=== PATIENT | female | born 1955 | race Caucasian/White ===

== ENCOUNTER 2023-01-24 00:02 | Emergency (ER) | payer MEDICARE, MEDICAID, SELFPAY ==
--- NOTE | ~2023-01-24 | XR_ITS ---
EXAMINATION: XR ANKLE, LEFT CLINICAL INFORMATION: Pain COMPARISON: None available. TECHNIQUE: AP, lateral, and mortise views of the left ankle. FINDINGS: The bone mineralization is within normal limits. No fracture is seen. The joint spaces are maintained. There is soft tissue swelling along the tib-fib and ankle. Tib-fib soft tissue calcifications are also seen. XR/XR ankle LT min 3V IMPRESSION: No acute osseous abnormality. Soft tissue swelling about the tib-fib and ankle.
--- NOTE | ~2023-01-24 | XR_ITS ---
EXAMINATION: XR FOOT, LEFT CLINICAL INFORMATION: Bruising. Pain. COMPARISON: None available. TECHNIQUE: AP, lateral, and oblique views of the left foot. FINDINGS: The bone mineralization is normal. There is a cortical step-off along the anterior one third of the inferior calcaneus with a jagged lucency extending superiorly to the superior cortex. There is mild first metatarsophalangeal and interphalangeal degenerative change with mild loss of joint space and subchondral sclerosis as well as minimal osteophyte formation. There is soft tissue swelling about the foot. A heel spur is noted. XR/XR foot LT min 3V IMPRESSION: Cortical step-offs and lucency through the calcaneus consistent with a mildly displaced fracture. First metatarsophalangeal and interphalangeal degenerative change.
[2023-01-24 00:11] VITALS: BP 120/62; BP 148/88; PULSE 78; PULSE 95; RESP 18; TEMP 36.9; O2SAT 94; O2SAT 98; BMI 38.0
--- NOTE | 2023-01-24 00:45 | PC.NURSE ---
Pt states she was incontinent of stool during fall. Pt assisted to restroom via wheelchair, pericare provided and new pants provided. Taken to XR at this time.
--- OUTSIDE RECORDS SUMMARY | 2023-01-24 01:32 | XMS_ITS | Continuity of Care Document ---
Author Name Unknown Organization [facility] ter Address [address] [place] [address]- Care Team Providers Care Brick Dropper Name Role Phone Chadd Caba MD Primary Care Physician [phone] [place] [facility] [place] - 05/13/[address] [address]- [facility] Attending Physician: Chadd Caba MD Allergies, Adverse Reactions, Alerts Substance Reaction Severity Status Darvon unsure Active Contrast Dye hives Active Other Environmental Allergy dexon suture, swelling Active Medications albuterol CFC free 90 mcg/inh inhalation aerosol 2, puffs, Inhalation, Every 4 hours, PRN, # 18 Gm, Refills 0, Maintenance, 05/30/18 10:16:52 EST, Aerosol, Compound Start Date: 05/30/18 Status: Ordered atorvastatin 10 mg oral tablet 1 tablet = 10 mg, By Mouth, Daily in AM, # 30 tablet, 0 Refills, Maintenance Start Date: 05/30/18 Status: Ordered biotin 1000 mcg oral tablet 1 tablet = 1,000 mcg, By Mouth, Daily at supper, # 30 tablet, 0 Refills, Maintenance, 03/23/19 14:38:10 EDT, Tablet Start Date: 03/23/19 Status: Ordered chlorthalidone 25 mg oral tablet 25 mg, 1, tablet, By Mouth, Daily in AM, # 30 tablet, Refills 0, Maintenance, 05/30/18 10:04:31 EST Start Date: 05/30/18 Status: Ordered CoQ10 300 mg oral capsule 1 capsule = 300 mg, By Mouth, Daily at bedtime, # 100 capsule, 0 Refills, Maintenance, 05/30/18 10:02:34 EST, Capsule Start Date: 05/30/18 Status: Ordered Ecotrin 325 mg oral delayed release tablet 1 tablet = 325 mg, By Mouth, Daily, # 30 tablet, 0 Refills, Maintenance, 03/28/19 6:39:30 EST, EC Tablet Start Date: 03/28/19 Status: Ordered Fluoxetine = 20 mg, By Mouth, Daily in AM, 0 Refills, Maintenance, 05/30/18 9:56:00 EST Start Date: 05/30/18 Status: Ordered levothyroxine 0.1 mg oral tablet 1 tablet = 100 mcg, By Mouth, Daily in AM, # 30 tablet, 0 Refills, Maintenance, 05/30/18 9:55:22 EST, Tablet Start Date: 05/30/18 Status: Ordered losartan 100 mg oral tablet 1 tablet = 100 mg, By Mouth, Daily at supper, 0 Refills, Maintenance, 03/23/19 14:38:44 EDT Start Date: 03/23/19 Status: Ordered MS Contin 60 mg oral tablet, extended release 1 tablet = 60 mg, By Mouth, Every 12 hours, 0 Refills, Maintenance, 03/23/19 14:37:16 EDT, Partial fill upon patient request Start Date: 03/23/19 Status: Ordered Multivitamin 1 tablet, By Mouth, Daily, 0 Refills, Maintenance, 03/23/19 14:34:20 EDT Start Date: 03/23/19 Status: Ordered oxyCODONE 5 mg oral tablet See Instructions, PRN, 1 tablet By Mouth Every 4-6 hours PRN breakthrough pain, # 18 tablet, Refills 0, Tot. Refills 0, Maintenance, for pain, 03/28/19 6:39:35 EST, Instructions Replace Required Details, Do Not Route, Partial fill upon patient request Start Date: 03/28/19 Status: Ordered Patient's Own Meds Maintenance, calcium 600 mg 1 tablet once daily, 05/30/18 10:05:35 EST Start Date: 05/30/18 Status: Ordered Symbicort 80mcg/4.5mcg Inhaler 2, puffs, Inhalation, 2 times a day, # 10.2 Gm, Refills 0, Maintenance, 05/30/18 10:15:50 EST, Aerosol Start Date: 05/30/18 Status: Ordered Tylenol Extra Strength 500 mg oral tablet 2 tablet = 1,000 mg, By Mouth, 3 times a day, PRN as needed for pain, # 90 tablet, 0 Refills, Maintenance, 03/28/19 6:39:21 EST, Tablet Start Date: 03/28/19 Status: Ordered Vitamin D3 1000 intl units oral capsule 1 capsule = 1,000 International_Units, By Mouth, Daily, # 100 capsule, 0 Refills, Maintenance, 03/10/19 10:59:13 EDT, Capsule Start Date: 03/10/19 Status: Ordered Social History Social History Type Response Smoking Status Former smoker, quit more than 30 days ago; Other: quit 20+ years ago; entered on: 04/13/19 Sex
--- OUTSIDE RECORDS SUMMARY | 2023-01-24 01:33 | XMS_ITS | Continuity of Care Document ---
Author Name Unknown Organization [facility] Sandrita young Address [address] [place] [address] [address] [place] [address]- Care Team Providers Care Utility Pipe Layer Name Role Phone Rosales ROGERS, Chadd Sy Primary Care Physician En[facility] [place] Date(s): 10/12/19 - 11/11/19 [facility] [address] [place] [address] Drive [address] [place] [address]- [facility] Attending Physician: Admtr, [id number] Admitting Physician: Admtr, Judie Referring Physician: Admtr, [id number] Allergies, Adverse Reactions, Alerts Substance Reaction Severity [...]
--- OUTSIDE RECORDS SUMMARY | 2023-01-24 01:33 | XMS_ITS | Continuity of Care Document ---
Author Name Unknown Organization [facility] ter Address [address] [place] [address]- Care Team Providers Care Shot Blaster Name Role Phone Chadd Caba MD Primary Care Physician [phone] [id number] Date([facility] 09/[facility] - 09/04/[address] [address]- Attending Physician: Chadd Caba MD Allergies, Adverse Reactions, Alerts Substance Reaction Severity Status Darvon unsure Active Other Environmental Allergy dexon suture, swelling Active Contrast Dye hives Active Medications albuterol CFC free 90 mcg/inh [...]
--- OUTSIDE RECORDS SUMMARY | 2023-01-24 01:33 | XMS_ITS | Continuity of Care Document ---
Author Name Unknown Organization [facility] ter Address [address] [place] [address]- Care Team Providers Care Maintenance Assistant Name Role Phone Chadd Caba MD Primary Care Physician [place] [facility] [place](s): 08/15/19 - 08/16/[address] [address]- [facility] Attending Physician: Chadd Caba MD Allergies, Adverse [...]
--- OUTSIDE RECORDS SUMMARY | 2023-01-24 01:33 | XMS_ITS | Continuity of Care Document ---
Author Name Unknown Organization [facility] Address [address] [place] [address]- Care Team Providers Care Lease Analyst Name Role Phone Chadd Caba MD Primary Care Physician En[place] [facility] [place] Date(s): 11/23/19 - 11/24/[address] [address]- [facility] Attending Physician: Chadd Caba MD Allergies, Adverse [...]
--- OUTSIDE RECORDS SUMMARY | 2023-01-24 01:33 | XMS_ITS | Continuity of Care Document ---
Author Name Unknown Organization [facility] ter Address [address] [place] [address]- Care Team Providers Care Gun Repair Clerk Name Role Phone Chadd Caba MD Primary Care Physician [phone] [id number] Date[facility] 08/27/20 - 08/28/[address] [address]- Attending Physician: Chadd Caba MD Allergies, Adverse [...]
--- OUTSIDE RECORDS SUMMARY | 2023-01-24 01:33 | XMS_ITS | Continuity of Care Document ---
Author Name Unknown Organization [facility] ter Address [address] [place] [address]- Care Team Providers Care Freezer Worker Name Role Phone Rosales ROGERS, Chadd Sy Primary Care Physician En[place] [facility] [place] Date(s): 08/02/19 - 08/02/[address] [address]- [facility] Attending Physician: Brooklyn Lino MD Allergies, Adverse Reactions, Alerts Substance Reaction [...]
--- OUTSIDE RECORDS SUMMARY | 2023-01-24 01:33 | XMS_ITS | Continuity of Care Document ---
Author Name Unknown Organization [facility] ter Address [address] [place] [address]- Care Team Providers Care Midwife And Birth [facility] Owner Name Role Phone Chadd Caba MD Primary Care Physician [facility] [id number] Date(s): 05/31/20 - 06/01/[address] [address] Attending Physician: Chadd Caba MD Allergies, Adverse [...]
--- OUTSIDE RECORDS SUMMARY | 2023-01-24 01:33 | XMS_ITS | Continuity of Care Document ---
Author Name Unknown Organization [facility] ter Address [address] [place] [address]- Care Team Providers Care Vice President Network Name Role Phone Chadd Caba MD Primary Care Physician En[place] [facility] [place] Date(s): 05/17/19 - 08/16/[address] [address]- [facility] Attending Physician: Chadd Caba MD Allergies, Adverse [...]
--- OUTSIDE RECORDS SUMMARY | 2023-01-24 01:33 | XMS_ITS | Continuity of Care Document ---
Author Name Unknown Organization [facility] ter Address [address] [place] [address]- Care Team Providers Care Teletypesetter Monitor Name Role Phone Chadd Caba MD Primary Care Physician [phone] [place] [facility] [id number] Date(s): 02/26/20 - 02/27/[address] [address]- [facility] Attending Physician: Chadd Caba MD [...]
--- NOTE | 2023-01-24 02:20 | ED.FALL ---
HPI - Fall General Chief Complaint: Fall Stated Complaint: Fall/ Left foot pain Time Seen by Provider: 01/24/23 02:06 Source: patient Mode of arrival: ambulatory Limitations: no limitations History of Present Illness HPI Narrative: Patient came by EMS for evaluation after falling backwards down 3 steps. States she was walking up steps when person in front of her fell into her causing her fall comes here with right calf pain and left ankle swelling and pain patient does have chronic back pain no head injury no loss of consciousness no other injuries patient has previous surgeries and bilateral ankle Related Data Allergies Allergy/AdvReac Type Severity Reaction Status Date / Time No Known Allergies Allergy Verified 01/24/23 00:11 Review of Systems Review of Systems: Yes all other systems are reviewed and are negative [facility] Social History Social History Alcohol intake: never Smoked in Last 30 Days: No Use of substances other than those prescribed or required for medical reasons: No Advance Directives: No Advance Directives Information Provided: Yes Physical Exam Vital Signs: Vital Signs: Last Vital Signs Temp 98.8 F 01/24/23 04:00 Pulse 82 01/24/23 04:00 Resp 18 01/24/23 04:00 BP 137/71 01/24/23 04:00 Pulse Ox 95 01/24/23 04:00 O2 Del Method Room Air 01/24/23 04:00 BMI result Body Mass Index 38.0 Appearance: Alert. Oriented X3. No acute distress. Eyes: PERRLA, No Nystagmus ENT: Pharynx normal. Oral Mucosa moist atraumatic normocephalic Neck: Normal inspection. Neck supple. No midline tenderness CVS: Normal heart rate and rhythm. Pulses normal. Respiratory: No respiratory distress. Equal air entry bilateral, no wheezing/rales/rhonchi Abdomen: Soft and nontender. Bowel sounds are present, Skin: Skin warm and dry. Normal skin color. Normal skin turgor. Extremities: No lower extremity edema. Mild right calf tenderness no swelling no muscle gap. Left ankle ecchymosis with significant swelling with tenderness of the heel, no deformity neurovascular intact Neuro: Oriented X 3. No motor deficit. Medications Administered Discontinued Medications Generic Name Dose Route Start Last Admin Trade Name Freq PRN Reason Stop Dose Admin Cyclobenzaprine HCl 10 mg 01/24/23 02:28 01/24/23 02:37 Cyclobenzaprine Hcl 10 Mg Tablet PO 01/24/23 02:29 10 mg ONCE ONE Administration Hydromorphone HCl 2 mg 01/24/23 02:28 01/24/23 02:37 Hydromorphone Hcl 2 Mg Tablet PO 01/24/23 02:29 2 mg ONCE ONE Administration Medical Decision Making Medical Decision Making [facility] Narrative: Patient's x-ray of left ankle negative for fracture but left foot x-ray showed minimal displaced calcaneal fracture, will give ortho boot crutches and check but she can ambulate Patient unable to bear weight has chronic back problems plan to send the patient for rehab for supportive treatment, case discussed with orthopedics advised boot nonweightbearing and follow up as outpatient Differential Diagnosis Differential Diagnoses: The differential diagnosis associated with the presentation includes Ankle fracture/dislocation/sprain Lab Data [facility] Lab Attestation statement: I reviewed the patient's lab results. 01/24/23 04:25 01/24/23 04:25 Labs: Lab Results 01/24/23 01/24/23 Range/Units 04:25 04:25 WBC 15.1 H (4.8-10.8) X10*3/uL RBC 4.19 L (4.20-5.50) X10*6/uL Hgb 12.7 (12.0-16.0) g/dl Hct 37.5 (37.0-47.0) % MCV 89.5 (80.0-98.0) fL MCH 30.3 (27.0-33.0) pg MCHC 33.9 (31.0-35.0) g/dl RDW 14.4 (11.0-16.0) % Plt Count 265 (160-400) X10*3/uL MPV 10.0 (9.4-12.3) fL Immature Gran % (Auto) 0.7 H (0.0-0.4) % Neut % (Auto) 82.5 H (45-73) % Lymph % (Auto) 10.5 L (20-40) % [place] % (Auto) 5.5 (2-11) % Eos % (Auto) 0.4 (0-4) % Baso % (Auto) 0.4 (0-2) % Lymph # (Auto) 1.6 (1.2-4.9) X10*3/uL [place] # (Auto) 0.8 (0.1-1.2) X10*3/uL Eos # (Auto) 0.1 (0.0-0.4) X10*3/uL Baso # (Auto) 0.1 (0.0-0.2) X10*3/uL Abs Immat Gran (auto) 0.10 H (0.00-0.03) X10*3/uL Absolute Neuts (auto) 12.5 H (2.0-8.3) x10*3/uL Absolute Nucleated RBC 0.000 (0.0-0.012) X10*3/uL Nucleated RBC % (auto) 0.0 (0.0-0.2) /100WBC Sodium 140 (135-145) mmol/L Potassium 3.0 L (3.3-5.1) mmol/L Chloride 98 (96-108) mmol/L Carbon Dioxide 29 (22-29) mmol/L Anion Gap 16 (12-20) BUN 26 H (9-16) mg/dL Creatinine 0.94 (0.5-1.4) mg/dL Estim Creat Clear Calc 60.4 Estimated GFR 59 Random Glucose 127 H (60-115) mg/dL Calcium 9.6 (8.4-10.2) mg/dL Total Bilirubin 0.4 (0.0-1.0) mg/dL AST 25 (5-31) U/L ALT 22 (0-31) U/L Alkaline Phosphatase 83 (39-117) U/L Total Protein 7.2 (6.5-8.0) g/dL Albumin 4.2 (3.5-5.0) g/dL Radiology Impression Discussion of test interpretation with radiology: I have reviewed the radiologist's reading. Radiologist Impression: RDER #: [id number] XR/XR foot LT min 3V IMPRESSION: Cortical step-offs and? lucency through the calcaneus consistent with a mildly displaced fracture. ? First metatarsophalangeal and interphalangeal degenerative change. Discharge Plan Discharge Clinical Impression: Calcaneus fracture, left Patient Disposition: Still a Patient
[2023-01-24] MEDS: HYDROmorphone HCl 2 MG TABLET PO ×2 (02:37→09:28)
[2023-01-24] MEDS: Cyclobenzaprine HCl 10 MG TABLET PO (02:37)
--- NOTE | 2023-01-24 03:04 | PC.NURSE ---
Patient medicated for pain and assisted to the bathroom. Patient having difficulty weight bearing on the left ankle at this time.
[2023-01-24 04:00] VITALS: BP 137/71; PULSE 82; RESP 18; TEMP 37.1; O2SAT 95
[2023-01-24 04:30] LABS: Basophils Absolute Auto 0.1 X10*3/uL (0.0-0.2); Basophils Percent Auto 0.4 % (0-2); Eosinophils Absolute Auto 0.1 X10*3/uL (0.0-0.4); Eosinophils Percent Auto 0.4 % (0-4); Hematocrit 37.5 % (37.0-47.0); Hemoglobin 12.7 g/dl (12.0-16.0); Imm Gran Pct Auto 0.7 % (0.0-0.4); Lymphocytes Absolute Auto 1.6 X10*3/uL (1.2-4.9); Lymphocytes Percent Auto 10.5 % (20-40); MANUAL DIFF FLAG NO; Mean Corpuscular HGB Conc 33.9 g/dl (31.0-35.0); Mean Corpuscular Hemoglobin 30.3 pg (27.0-33.0); Mean Corpuscular Volume 89.5 fL (80.0-98.0); Monocytes Absolute Auto 0.8 X10*3/uL (0.1-1.2); Monocytes Percent Auto 5.5 % (2-11); Neutrophils Absolute Auto 12.5 x10*3/uL (2.0-8.3); Neutrophils Percent Auto 82.5 % (45-73); Platelet Count 265 X10*3/uL (160-400); Red Blood Count 4.19 X10*6/uL (4.20-5.50); Red Cell Distribution Width 14.4 % (11.0-16.0); White Blood Count 15.1 X10*3/uL (4.8-10.8)
[2023-01-24 04:47] LABS: Alanine Aminotransferase 22 U/L (0-31); Albumin Level 4.2 g/dL (3.5-5.0); Alkaline Phosphatase 83 U/L (39-117); Anion Gap 16 (12-20); Aspartate Amino Transferase 25 U/L (5-31); Bilirubin Total 0.4 mg/dL (0.0-1.0); Blood Urea Nitrogen 26 mg/dL (9-16); Calcium 9.6 mg/dL (8.4-10.2); Carbon Dioxide 29 mmol/L (22-29); Chloride 98 mmol/L (96-108); Creatinine Clr Calc Pharmacy 60.4; Estimated Glomerular Filt Rate 59; Glucose Random 127 mg/dL (60-115); Sodium 140 mmol/L (135-145); Total Protein 7.2 g/dL (6.5-8.0)
[2023-01-24 05:51] VITALS: BP 135/70; PULSE 82; RESP 18; TEMP 37.1; O2SAT 93
[2023-01-24] MEDS: Potassium Chloride ER 20 MEQ TAB.ER.PRT PO (05:59)
[2023-01-24] MEDS: Cyclobenzaprine HCl 5 MG TABLET PO (11:45)
--- NOTE | 2023-01-24 13:31 | MHC.CM.ED ---
Received consult for assessment of d/c needs: pt presented to ED after a fall w/injury to right foot: ? fx Pt states she resides alone and is independent w/care needs at baseline. She drives, and uses no DME however, she has a w/c, walker and adaptive equipment from a bilateral ankle injury several years ago. Her apartment is adapted for a w/c as well. Discussed need for PT eval and ortho consult on 01/25. Pt does not want to go to [facility] and would like to remain home if possible. She denied VNA needs, I did this with two ankle injuries before, I think I can manage fine with only one. Broad [facility] referrals made in the event she changes her mind or cannot safely adapt: will await PT eval and ortho consult. Pt will need BLS to home. HCP copy requested: PCP is Willie Bowen.
[2023-01-24 14:00] VITALS: BP 120/55; PULSE 79; RESP 16; TEMP 37.1; O2SAT 94
--- NOTE | 2023-01-24 18:03 | PC.NURSE ---
Addendum entered by Justine Baird RN 01/24/23 18:45: Order for PRN Oxycodone received and administered, effectiveness pending. Original Note: Patient c/o pain and muscle spasms, did get one time dose of Dilaudid for pain and one time dose Flexeril for muscle spasms, cannot ambulate as she is unable to bear weight on left leg, using wheelchair to go to the bathroom, patient is having difficulties transferring from bed to the chair and from chair on the toilet but is insisting on using the toilet, and refuses bedpan. Numerous requests sent to provider for pain medication.
[2023-01-24] MEDS: oxyCODONE HCl Immed Release 5 MG TABLET 10 MG PO (18:33)
--- NOTE | 2023-01-24 19:27 | MHC.EDTECH ---
Pt resting in bed respirations even and unlabored no distress noted plan of care ongoing
[2023-01-24 20:53] VITALS: BP 135/70; PULSE 83; RESP 17; TEMP 36.3; O2SAT 95
[2023-01-25] MEDS: oxyCODONE HCl Immed Release 5 MG TABLET 10 MG PO ×4 (04:56→19:21)
[2023-01-25 06:16] VITALS: BP 117/50; PULSE 81; RESP 16; TEMP 36.1; O2SAT 97
--- NOTE | 2023-01-25 09:33 | MHC.EDTECH ---
AM care set up , Pt on chair . bed change .
--- NOTE | 2023-01-25 14:41 | PHA.MEDREC ---
Pharmacy Consult ? Medication Reconciliation Pharmacy has reviewed the medication reconciliation completed by Sita. Patient no longer taking oxybutynin, therefore removed from list. Patient on vit D3, calcium, biotin, multivitamin and PRN albuterol which I added to list. Danielle Owen, PharmD
--- NOTE | 2023-01-25 14:48 | MHC.CM.ED ---
Patient remains in ER overflow. PT eval completed. Short term rehab was recommended. Patient has [facility] for insurance. Insurance auth will be needed in order for patient to transfer to [facility]. Referral made in [facility] to all facilities that are contracted with [facility]. Facility options discussed with patient. [facility] [place], [facility], [facility] are able to offer a bed. Still waiting for response from [facility]. Patient choices: 1) [facility] 2)[facility]. Continue to monitor for d/c needs.
--- NOTE | 2023-01-26 02:52 | PC.NURSE ---
PT A&OX3. RESTFUL AT PRESENT WITH NO COMPLAINTS. C/0 PAIN LEFT FOOT/ANKLE EARLIER IN SHIFT AND RECEIVED OXYCODONE 10 MG PO WITH GOOD EFFECT. LEFT FOOT/ANKLE IS EDEMATOUS AND ICE PACKS APPLIED. PT OOB WITH 1 ASSIST TO RECLINER FOR SHORT TIME. REFUSES TO WEAR LEFT FOOT BOOT. PM CARE GIVEN AND PUREWICK CHANGED. PT BTB. GOOD EFFECT FROM OXYCODONE NOTED.
[2023-01-26 03:22] VITALS: BP 119/53; PULSE 89; RESP 17; TEMP 36.6; O2SAT 93
[2023-01-26] MEDS: oxyCODONE HCl Immed Release 5 MG TABLET 10 MG PO (03:24)
[2023-01-26 08:09] VITALS: BP 128/64; PULSE 81
[2023-01-26] MEDS: hydroCHLOROthiazide 25 MG TABLET PO (08:10)
[2023-01-26] MEDS: FLUoxetine HCl 20 MG CAPSULE PO (08:10)
[2023-01-26] MEDS: Potassium Chloride ER 20 MEQ TAB.ER.PRT 60 MEQ PO (08:10)
[2023-01-26] MEDS: oxyCODONE HCl Immed Release 5 MG TABLET PO ×2 (08:11→14:04)
[2023-01-26] MEDS: Multivitamin TABLET 1 TAB PO (08:11)
[2023-01-26] MEDS: Cholecalciferol (Vitamin D3) 25 MCG TABLET PO (08:11)
[2023-01-26] MEDS: Acetaminophen 325 MG TABLET PO ×2 (08:12→14:03)
[2023-01-26] MEDS: Losartan Potassium 50 MG TABLET 100 MG PO (08:15)
[2023-01-26] MEDS: Levothyroxine Sodium 100 MCG TABLET PO (08:19)
--- NOTE | 2023-01-26 08:42 | PC.NURSE ---
PT alert and oriented x4 , c/o chronic pain in the back as well as the lower extremities, treated with scheduled meds. Pt states someone will be bringing home morphine today. While at the bedside, pt took her own home levothyroxine. This nurse attempted to collect the home med, patient refused.
--- NOTE | 2023-01-26 11:14 | MHC.CM.ED ---
Patient remains in ER overflow. [facility] is able to offer a bed and is in the process of obtaining insurance auth. Continue to monitor for d/c needs.
[2023-01-26] MEDS: Fluticasone/Umeclidinium/Vilanterol 100/62.5/25 BLST.W.DEV 1 PUFF INHALE (11:46)
[2023-01-26 12:22] LABS: Anion Gap 12 (12-20); Blood Urea Nitrogen 14 mg/dL (9-16); Carbon Dioxide 33 mmol/L (22-29); Chloride 98 mmol/L (96-108); Creatinine Clr Calc Pharmacy 60.4; Estimated Glomerular Filt Rate 59; Glucose Random 104 mg/dL (60-115); Potassium 3.3 mmol/L (3.3-5.1); Sodium 140 mmol/L (135-145)
[2023-01-26 12:40] LABS: COVID-19 Test Negative (Negative); IDNOW Serial# BCCEAD1C
[2023-01-26] MEDS: Morphine Sulfate Immed Release 15 MG TABLET PO (13:18)
--- NOTE | 2023-01-26 13:35 | PC.NURSE ---
pt given 15mg MS immediate release per MR. confirmed with PA. pt reports that upcoming [facility] oxycodone 5mg is not sufficient and requests to speak to provider.
[2023-01-26] MEDS: Potassium Chloride Packet 20 MEQ PACKET 40 MEQ PO (13:58)
== END 2023-01-26 14:22 | disposition skilled nursing facility (03) ==
PROVIDERS: Physician Assistant; Emergency Provider Internal Medicine; PCP Internal Medicine
DX: S92.002A Unspecified fracture of left calcaneus, initial encounter for closed fracture (principal); R26.81 Unsteadiness on feet; E87.6 Hypokalemia; W10.9XXA Fall (on) (from) unspecified stairs and steps, initial encounter; Y93.9 Activity, unspecified; Y92.9 Unspecified place or not applicable; Y99.9 Unspecified external cause status; Z20.822 Contact with and (suspected) exposure to COVID-19; Z20.828 Contact with and (suspected) exposure to other viral communicable diseases; Z79.899 Other long term (current) drug therapy
CPT/HCPCS: 36415; 73610; 73630; 80048; 80053; 85025; 87635; 97162; 99285

== ENCOUNTER 2023-02-01 13:23 | Outpatient (AMB) | payer MEDICARE, MEDICAID, SELFPAY ==
--- NOTE | 2023-02-01 13:29 | A.OFFVIS_ITS ---
Intake Intake Visit Reasons: ED F/U L calc fx, DOI 01/24/23 Intake Note: Thuy a 68 year old female who presents today for an ER follow up of left calcaneus fx, DOI 01/24/23. Patient reports while she was going up stairs another person fell into her causing her to fall backwards. Currently constant throbbing pain and swelling, states can stand but not able to walk. Hx of back problems. Hx of bilateral ankle surgery. Finds very little relief with pain medication. Patient complains of right calf pain and bruising, as well as left shoulder pain, unsure if this is related to her fall. Allergies No Known Allergies Allergy (Verified 02/01/23 13:29) HPI ED F/U L calc fx, DOI 01/24/23 HPI Details 68-year-old female who presents to the [facility] today for an ED follow-up of left foot injury s/p fall while going up when another person fell onto her causing her to fall backwards, 01/24/23. She states she has throbbing pain and swelling in her foot which makes her unable to ambulate. She finds minimal relief with her pain medication. She also c/o right calf pain and bruising as well as left shoulder pain which she is unsure if it is due to her fall. She has a history of back problems and bilateral ankle surgery. 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 Review of Systems Const All systems reviewed & are unremarkable except as noted in HPI and below Physical Exam Const General: cooperative, healthy appearing, comfortable, no acute distress, well developed and alert Orientation/consciousness: patient oriented x3 HEENT Head: Yes normal to inspection, Yes normocephalic and Yes atraumatic Eyes General: appearance normal, both eyes and all related structures Resp Effort & Inspection: normal respiratory effort and able to speak in complete sentences Cardio Rate: regular rate Peripheral pulses: Peripheral pulses 2+ throughout GI Palpation (GI): Soft to palpation Skin Lesions: no lesions Rashes: no rashes Neuro General: patient oriented x3 Extrem Other: Left ankle: Normal to inspection. She does have diffused swelling and bruising throughout the calcaneus into the foot with tenderness to the posterior aspect into the calcaneus. She has no tenderness over the medial or lateral malleolus. No tenderness over the anterior tears. She does have some cellulitic skin type changes over the dorsum of the left foot. Calf supple, nontender. Pulses present. NVI. Right ankle: Normal to inspection. She does have some bruising at the base of the foot. No tenderness over the medial or lateral malleolus. No tenderness in the anterior portion of the talus No tenderness in the foot. She does have some tenderness over the belly of the calf which extends distally. There is no defect along the Achilles tendon. She can dorsi and plantar flex without discomfort. NVI. Results Reviewed Results Reviewed: X-rays of the right calcaneus obtained in the ED on January 24 show a minimally displaced fracture through the posterior body of the calcaneus. No extension into the articular surface. Assessment & Plan Assessment & Plan (1) Calcaneus fracture, left: Code(s): S92.002A - Unspecified fracture of left calcaneus, initial encounter for closed fracture Qualifiers: Encounter type: initial encounter Calcaneus location: body Fracture type: closed Fracture alignment: nondisplaced Qualified Code(s): S92.015A - Nondisplaced fracture of body of left calcaneus, initial encounter for closed fracture (2) Contusion of right calf: Code(s): S80.11XA - Contusion of right lower leg, initial encounter Qualifiers: Encounter type: initial encounter Qualified Code(s): S80.11XA - Contusi on of right lower leg, initial encounter Plan She will remain non weight bearing in the LLE. Due to the amount of swelling, she will continue to wear the boot but she does understand she needs to wear this at all times unless for resting and hygiene. I did prescribe her Bactrim DS to take twice a day for 10 days to help with this cellulitis. For her RLE, I did not feel there is any bony abnormality present, I feel this is all soft tissue. I encouraged ankle ROM exercises and ice. She can weight bearing as tolerated on the RLE and I would like to see her back in 1 weeks for a skin check sooner if needed. Patient Instructions: Scribed for Ramana Garrett PA-C, by Juan Manuel Salazar medical file clerk, on 02/01/2023 at 1:30 PM EST. I, Ramana Garrett PA-C, have personally reviewed and agree with the information entered by the scribe. Coding Level of Care Code New Pt Level 3 (06049) Diagnoses Closed nondisplaced fracture of body of left calcaneus, initial encounter S92.015A Encounter type: initial encounter Calcaneus location: body Fracture type: closed Fracture alignment: nondisplaced Contusion of right calf, initial encounter S80.11XA Encounter type: initial encounter
== END 2023-02-01 14:38 | disposition home or self-care (01) ==
PROVIDERS: Visit Provider Physician Assistant
DX: S92.015A Nondisplaced fracture of body of left calcaneus, initial encounter for closed fracture (principal); S80.11XA Contusion of right lower leg, initial encounter
CPT/HCPCS: 99203

== ENCOUNTER → 2023-02-01 13:23 | Outpatient (BNVA) | payer MEDICARE, MEDICAID, SELFPAY | PROVIDERS: Visit Provider Physician Assistant ==

== ENCOUNTER 2023-09-01 09:50 | Outpatient (AMB) | payer MEDICARE, MEDICAID, SELFPAY ==
[2023-09-01 09:55] VITALS: BP 136/80; PULSE 76; O2SAT 95; BMI 39.4
--- NOTE | 2023-09-01 09:55 | A.OFFVIS_ITS ---
Intake Vital Signs 09/01/23 09:55 Height 5 ft 2 in Weight 215 lb 5.759 oz BMI 39.4 BP 136/80 Blood Pressure Location Rt brachial Position Sitting Pulse 76 Pulse Source Doppler Pulse Oximetry (%) 95 Oxygen Delivery Method Room Air Intake Visit Reasons: COPD/Pre Op (NEOS) Allergies contrast dye Allergy (Severe, Uncoded 09/01/23 10:00) Unknown HPI COPD/Pre Op (NEOS) HPI Details 68-year-old lady, former 60+ pack-year s moker, quit 20 years prior with underlying moderate COPD and likely obstructive sleep apnea referred for pulmonary perioperative risk evaluation for the proposed ankle fusion under general anesthesia. Patient has been currently using Trelegy and albuterol MDI with good control of her underlying COPD symptoms. She denies recent exacerbations. She does have family history of emphysema and lung cancer in her parents. Patient states that before injuring her ankle she was able to walk several blocks without dyspnea. 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 Review of Systems Const Denies daytime sleepiness, Denies excessive sweating, Denies fatigue, Denies fever(s), Denies lethargy, Denies malaise, Denies night sweats, Denies snoring and Denies weight loss Eyes Denies blurry vision and Denies itchy eyes ENT Denies nasal congestion, Denies post nasal drip, Denies sinus pain, Denies sinus pressure and Denies other ( Thrush) Card Denies chest pain, Denies pedal edema, Denies dyspnea, Denies orthopnea and Denies paroxysmal nocturnal dyspnea Resp Denies cough, Denies hemoptysis, Denies excessive phlegm production, Denies dyspnea, Denies snoring and Denies wheezing GI Denies abdominal pain and Denies heartburn Musc Denies myalgias, Denies arthralgias and Denies joint swelling Skin/Breast Denies rash Neuro Denies memory loss and Denies seizure-like activity Psych Denies abnormal sleep pattern, Denies anxiety and Denies memory loss Endo Denies excessive sweating, Denies fatigue and Denies heat intolerance Fredrick/Lymph Denies easy bruising Aller/Immun Denies itchy eyes, Denies seasonal rhinorrhea and Denies wheezing Physical Exam Vital Signs: Last Vital Signs Pulse 76 09/01/23 09:55 BP 136/80 09/01/23 09:55 Pulse Ox 95 09/01/23 09:55 Oxygen Delivery Method Room Air 09/01/23 09:55 BMI result Body Mass Index 39.4 Const General: no acute distress and alert Nutritional Appearance: obese Orientation/consciousness: Other orientation findings ( oriented) HEENT Head: Yes atraumatic Eyes General: appearance normal, both eyes and all related structures Sclerae: sclerae normal EOM: EOMs intact bilaterally Neck Neck: Yes supple Lymphatic: no lymphadenopathy noted Resp Effort & Inspection: normal respiratory effort and no use of accessory muscles Auscultation: clear to auscultation bilaterally Cardio Rate: regular rate Rhythm: regular rhythm Heart sounds: no gallops, no murmurs and no rubs Skin General skin exam: other ( warm) Extrem General: No clubbing, No cyanosis and No edema Assessment & Plan Assessment & Plan (1) COPD (chronic obstructive pulmonary disease): Code(s): J44.9 - Chronic obstructive pulmonary disease, unspecified Plan: Results of recent pulmonary function test from [facility] reviewed. Underlying moderate COPD, now reasonably well controlled on current regimen of Trelegy and albuterol MDI. Continue current regimen. (2) ANGELLA (obstructive sleep apnea): Code(s): G47.33 - Obstructive sleep apnea (adult) (pediatric) Plan: Likely underlying obstructive sleep apnea. At this time patient wants to postpone further workup until recovering from her ankle surgery. (3) Encounter for preoperative pulmonary examination: Code(s): Z01.811 - Encounter for preprocedural respiratory examination Plan: At this time patient is at low risk for pulmonary perioperative complications for the proposed ankle fusion under general anesthesia. Secondary to likely underlying obstructive sleep apnea, consider extubation to BiPAP. Coding Level of Care Code New Pt Level 4 (79695) Diagnoses COPD (chronic obstructive pulmonary disease) J44.9 ANGELLA (obstructive sleep apnea) G47.33 Encounter for preoperative pulmonary examination Z01.811
== END 2023-09-01 10:18 | disposition home or self-care (01) ==
PROVIDERS: PCP Internal Medicine; Referring Provider Physician Assistant; Visit Provider Internal Medicine Pulmonary Disease
DX: J44.9 Chronic obstructive pulmonary disease, unspecified (principal); G47.33 Obstructive sleep apnea (adult) (pediatric); Z01.811 Encounter for preprocedural respiratory examination
CPT/HCPCS: 99204

== ENCOUNTER → 2023-09-01 09:50 | Outpatient (BNVA) | payer MEDICARE, MEDICAID, SELFPAY | PROVIDERS: PCP Internal Medicine; Referring Provider Physician Assistant; Visit Provider Internal Medicine Pulmonary Disease | DX: Z01.811 Encounter for preprocedural respiratory examination (principal); J44.9 Chronic obstructive pulmonary disease, unspecified; G47.33 Obstructive sleep apnea (adult) (pediatric) | CPT/HCPCS: 99202 ==

== ENCOUNTER 2024-02-08 13:08 | Outpatient (AMB) | payer MEDICARE, MEDICAID, SELFPAY ==
[2024-02-08 13:12] VITALS: BP 122/77; PULSE 80; O2SAT 94; BMI 38.2
--- NOTE | 2024-02-08 13:12 | MHC.OFFVIS ---
Vital Signs 02/08/24 13:12 Height 5 ft 2 in Weight 209 lb BMI 38.2 BP 122/77 Blood Pressure Location Rt brachial Position Sitting Pulse 80 Pulse Source Doppler Pulse Oximetry (%) 94 Oxygen Delivery Method Room Air Intake Visit Reasons: COPD Allergies contrast dye Allergy (Severe, Uncoded 09/01/23 10:00) Unknown HPI HPI COPD: Details: 69-year-old lady, former 60+ pack-year smoker, quit 20 years prior with underlying moderate COPD and likely obstructive sleep apnea referred for pulmonary perioperative risk evaluation for the proposed ankle fusion under general anesthesia. Patient has been currently using Trelegy and albuterol MDI with good control of her underlying COPD symptoms. She denies recent exacerbations. She does have family history of emphysema and lung cancer in her parents. Patient states that before injuring her ankle she was able to walk several blocks without dyspnea. After the last office visit patient continued on Trelegy with reasonable control of her underlying symptoms. She is interested in performance sleep study at this time. She denies recent exacerbations. 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 Review of Systems Const Reports daytime sleepiness, Denies excessive sweating, Denies fatigue, Denies fever(s), Denies lethargy, Denies malaise, Denies night sweats, Reports snoring and Denies weight loss Eyes Denies blurry vision and Denies itchy eyes ENT Denies nasal congestion, Denies post nasal drip, Denies sinus pain, Denies sinus pressure and Denies other ( Thrush) Card Denies chest pain, Denies pedal edema, Denies dyspnea, Denies orthopnea and Denies paroxysmal nocturnal dyspnea Resp Denies cough, Denies hemoptysis, Denies excessive phlegm production, Denies dyspnea, Reports snoring and Denies wheezing GI Denies abdominal pain and Denies heartburn Musc Denies myalgias, Denies arthralgias and Denies joint swelling Skin/Breast Denies rash Neuro Denies memory loss and Denies seizure-like activity Psych Denies abnormal sleep pattern, Denies anxiety and Denies memory loss Endo Denies excessive sweating, Denies fatigue and Denies heat intolerance Fredrick/Lymph Denies easy bruising Aller/Immun Denies itchy eyes, Denies seasonal rhinorrhea and Denies wheezing Physical Exam Vital Signs: Last Vital Signs Pulse 80 02/08/24 13:12 BP 122/77 02/08/24 13:12 Pulse Ox 94 02/08/24 13:12 Oxygen Delivery Method Room Air 02/08/24 13:12 BMI result Body Mass Index 38.2 Const General: no acute distress and alert Nutritional Appearance: obese Orientation/consciousness: Other orientation findings ( oriented) HEENT Head: Yes atraumatic Eyes General: appearance normal, both eyes and all related structures Sclerae: sclerae normal EOM: EOMs intact bilaterally Neck Neck: Yes supple Lymphatic: no lymphadenopathy noted Resp Effort & Inspection: normal respiratory effort and no use of accessory muscles Auscultation: clear to auscultation bilaterally Cardio Rate: regular rate Rhythm: regular rhythm Heart sounds: no gallops, no murmurs and no rubs Skin General skin exam: other ( warm) Extrem General: No clubbing, No cyanosis and No edema Assessment & Plan Assessment & Plan (1) COPD (chronic obstructive pulmonary disease): Code(s): J44.9 - Chronic obstructive pulmonary disease, unspecified Category: Medical Plan: Well controlled on current regimen of Trelegy and albuterol MDI. Continue current regimen. (2) ANGELLA (obstructive sleep apnea): Code(s): G47.33 - Obstructive sleep apnea (adult) (pediatric) Category: Medical Plan: Unrestful sleep, daytime sleepiness. Harrold Sleepiness Scale score of 15. Will obtain home sleep study. Orders: Orders RT home sleep study Today G47.33 - Obstructive sleep apnea (adult) (pediatric) Coding Level of Care Code Est Pt Level 4 (94009) Diagnoses COPD (chronic obstructive pulmonary disease) J44.9 ANGELLA (obstructive sleep apnea) G47.33
== END 2024-02-08 13:28 | disposition home or self-care (01) ==
PROVIDERS: PCP Internal Medicine; Visit Provider Internal Medicine Pulmonary Disease
DX: J44.9 Chronic obstructive pulmonary disease, unspecified (principal); G47.33 Obstructive sleep apnea (adult) (pediatric)
CPT/HCPCS: 99214

== ENCOUNTER → 2024-02-08 13:08 | Outpatient (BNVA) | payer MEDICARE, MEDICAID, SELFPAY | PROVIDERS: PCP Internal Medicine; Visit Provider Internal Medicine Pulmonary Disease | DX: J44.9 Chronic obstructive pulmonary disease, unspecified (principal); G47.33 Obstructive sleep apnea (adult) (pediatric) | CPT/HCPCS: 99212 ==

== ENCOUNTER → 2024-03-21 09:56 | Outpatient (REF) | payer MEDICARE, MEDICAID, SELFPAY | LOC: HO.SL 09:56 | PROVIDERS: PCP Internal Medicine; Visit Provider Internal Medicine Pulmonary Disease | DX: G47.33 Obstructive sleep apnea (adult) (pediatric) (principal) | CPT/HCPCS: 95806 ==

== ENCOUNTER → 2024-03-21 10:15 | Outpatient (BNV) | payer MEDICARE, MEDICAID, SELFPAY | PROVIDERS: PCP Internal Medicine; Visit Provider Internal Medicine | DX: R06.83 Snoring (principal); G47.10 Hypersomnia, unspecified | CPT/HCPCS: 95806 ==

== ENCOUNTER 2024-03-31 11:38 | Outpatient (AMB) | payer MEDICARE, MEDICAID, SELFPAY ==
[2024-03-31 11:40] VITALS: BP 102/62; PULSE 90; O2SAT 94; BMI 37.3
--- NOTE | 2024-03-31 11:40 | A.OFFVIS_ITS ---
Vital Signs 03/31/24 11:40 Height 5 ft 2 in Weight 204 lb BMI 37.3 BP 102/62 Blood Pressure Location Rt brachial Position Sitting Pulse 90 Pulse Source Doppler Pulse Oximetry (%) 94 Oxygen Delivery Method Room Air Intake Visit Reasons: COPD/Sleep Study Follow Up Allergies contrast dye Allergy (Severe, Uncoded 09/01/23 10:00) Unknown HPI HPI COPD/Sleep Study Follow Up: Details: 69-year-old lady, former 60+ pack-year smoker, quit 20 years prior now followed for moderate COPD well controlled on current regimen of Trelegy and albuterol MDI. Patient also had recent sleep study that did not show significant obstructive sleep apnea. She denies recent exacerbations. [facility] Medical History (Updated 03/31/24 @ 11:04 by Dulce Santizo PA-C) COPD (chronic obstructive pulmonary disease) ANGELLA (obstructive sleep apnea) Hypertension Hyperlipidemia Hypothyroidism Depression Surgical History (Updated 03/31/24 @ 11:04 by Dulce Santizo PA-C) History of cholecystectomy History of ankle surgery Social History (Updated 02/01/23 @ 13:40 by Beth Diaz [facility]) Alcohol intake: never Patient Tobacco Use Status: Former Tobacco user Advance Directives Date on File: 01/25/23 Current occupational status: retired 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 Review of Systems Const Denies daytime sleepiness, Denies excessive sweating, Denies fatigue, Denies fever(s), Denies lethargy, Denies malaise, Denies night sweats, Denies snoring and Denies weight loss Eyes Denies blurry vision and Denies itchy eyes ENT Denies nasal congestion, Denies post nasal drip, Denies sinus pain, Denies sinus pressure and Denies other ( Thrush) Card Denies chest pain, Denies pedal edema, Denies dyspnea, Denies orthopnea and Denies paroxysmal nocturnal dyspnea Resp Denies cough, Denies hemoptysis, Denies excessive phlegm production, Denies dys pnea, Denies snoring and Denies wheezing GI Denies abdominal pain and Denies heartburn Musc Denies myalgias, Denies arthralgias and Denies joint swelling Skin/Breast Denies rash Neuro Denies memory loss and Denies seizure-like activity Psych Denies abnormal sleep pattern, Denies anxiety and Denies memory loss Endo Denies excessive sweating, Denies fatigue and Denies heat intolerance Fredrick/Lymph Denies easy bruising Aller/Immun Denies itchy eyes, Denies seasonal rhinorrhea and Denies wheezing Physical Exam Vital Signs: Last Vital Signs Pulse 90 03/31/24 11:40 BP 102/62 03/31/24 11:40 Pulse Ox 94 03/31/24 11:40 Oxygen Delivery Method Room Air 03/31/24 11:40 BMI result Body Mass Index 37.3 Const General: no acute distress and alert Nutritional Appearance: obese Orientation/consciousness: Other orientation findings ( oriented) HEENT Head: Yes atraumatic Eyes General: appearance normal, both eyes and all related structures Sclerae: sclerae normal EOM: EOMs intact bilaterally Neck Neck: Yes supple Lymphatic: no lymphadenopathy noted Resp Effort & Inspection: normal respiratory effort and no use of accessory muscles Auscultation: clear to auscultation bilaterally Cardio Rate: regular rate Rhythm: regular rhythm Heart sounds: no gallops, no murmurs and no rubs Skin General skin exam: other ( warm) Extrem General: No clubbing, No cyanosis and No edema Assessment & Plan Assessment & Plan (1) COPD (chronic obstructive pulmonary disease): Code(s): J44.9 - Chronic obstructive pulmonary disease, unspecified Category: Medical Plan: Well controlled on current regimen of trilogy and albuterol MDI. Continue current regimen. (2) ANGELLA (obstructive sleep apnea): Code(s): G47.33 - Obstructive sleep apnea (adult) (pediatric) Category: Medical Plan: Results of sleep study reviewed. No evidence of underlying obstructive sleep apnea. Coding Level of Care Code Est Pt Level 4 (82288) Diagnoses COPD (chronic obstructive pulmonary disease) J44.9 ANGELLA (obstructive sleep apnea) G47.33
== END 2024-03-31 11:55 | disposition home or self-care (01) ==
PROVIDERS: PCP Internal Medicine; Visit Provider Internal Medicine Pulmonary Disease
DX: J44.9 Chronic obstructive pulmonary disease, unspecified (principal); G47.33 Obstructive sleep apnea (adult) (pediatric)
CPT/HCPCS: 99214

== ENCOUNTER → 2024-03-31 11:38 | Outpatient (BNVA) | payer MEDICARE, MEDICAID, SELFPAY | PROVIDERS: PCP Internal Medicine; Visit Provider Internal Medicine Pulmonary Disease | DX: J44.9 Chronic obstructive pulmonary disease, unspecified (principal); G47.33 Obstructive sleep apnea (adult) (pediatric) | CPT/HCPCS: 99212 ==

== ENCOUNTER 2025-01-15 13:19 | Outpatient (AMB) | payer MEDICARE, MEDICAID, SELFPAY ==
[2025-01-15 13:23] VITALS: BP 122/77; PULSE 85; O2SAT 93; BMI 37.9
--- NOTE | 2025-01-15 13:23 | MHC.OFFVIS ---
Vital Signs 01/15/25 13:23 Height 5 ft 2 in Weight 207 lb BMI 37.9 BP 122/77 Blood Pressure Location Lt brachial Position Sitting Pulse 85 Pulse Source Pulse Oximeter Pulse Oximetry (%) 93 Oxygen Delivery Method Room Air Intake Visit Reasons: angella Allergies contrast dye Allergy (Severe, Uncoded 09/01/23 10:00) Unknown HPI HPI angella: Details: 70-year-old lady, former 60+ pack-year smoker, quit 20 years prior now followed for moderate COPD well controlled on current regimen of Trelegy and albuterol MDI. Patient denies recent exacerbations. 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 Review of Systems Const Denies daytime sleepiness, Denies excessive sweating, Denies fatigue, Denies fever(s), Denies lethargy, Denies malaise, Denies night sweats, Denies snoring and Denies weight loss Eyes Denies blurry vision and Denies itchy eyes ENT Denies nasal congestion, Denies post nasal drip, Denies sinus pain, Denies sinus pressure and Denies other ( Thrush) Card Denies chest pain, Denies pedal edema, Denies dyspnea, Denies orthopnea and Denies paroxysmal nocturnal dyspnea Resp Denies cough, Denies hemoptysis, Denies excessive phlegm production, Denies dyspnea, Denies snoring and Denies wheezing GI Denies abdominal pain and Denies heartburn Musc Denies myalgias, Denies arthralgias and Denies joint swelling Skin/Breast Denies rash Neuro Denies memory loss and Denies seizure-like activity Psych Denies abnormal sleep pattern, Denies anxiety and Denies memory loss Endo Denies excessive sweating, Denies fatigue and Denies heat intolerance Fredrick/Lymph Denies easy bruising Aller/Immun Denies itchy eyes, Denies seasonal rhinorrhea and Denies wheezing Physical Exam Vital Signs: Last Vital Signs Pulse 85 01/15/25 13:23 BP 122/77 01/15/25 13:23 Pulse Ox 93 01/15/25 13:23 Oxygen Delivery Method Room Air 01/15/25 13:23 BMI result Body Mass Index 37.9 Const General: no acute distress and alert Nutritional Appearance: obese Orientation/consciousness: Other orientation findings ( oriented) HEENT Head: Yes atraumatic Eyes General: appearance normal, both eyes and all related structures Sclerae: sclerae normal EOM: EOMs intact bilaterally Neck Neck: Yes supple Lymphatic: no lymphadenopathy noted Resp Effort & Inspection: normal respiratory effort and no use of accessory muscles Auscultation: clear to auscultation bilaterally Cardio Rate: regular rate Rhythm: regular rhythm Heart sounds: no gallops, no murmurs and no rubs Skin General skin exam: other ( warm) Extrem General: No clubbing, No cyanosis and No edema Assessment & Plan Assessment & Plan (1) COPD (chronic obstructive pulmonary disease): Code(s): J44.9 - Chronic obstructive pulmonary disease, unspecified Category: Medical Plan: Well controlled on current regimen of Trelegy and albuterol MDI. Continue current regimen. Patient is outside the screening criteria for lung cancer screening. Coding Level of Care Code Est Pt Level 3 (32988) Diagnoses COPD (chronic obstructive pulmonary disease) J44.9
--- OUTSIDE RECORDS SUMMARY | 2025-01-15 14:40 | XMS_ITS | Clinical Summary ---
Author Organization [facility] Address [address] [place] [address] Phone Care Team Providers Care Hvac Refrigeration Technician Name Role Phone Chadd Caba MD Primary Care Provider [phone] Allergies Active Allergy Reactions Criticality Noted Date Comments Propoxyphene N-Acetaminophen GI intolerance Iodinated Contrast Media Hives 09/18/2024 Propoxyphene Hives,Nausea Only,Rash 03/21/2019 Medications levothyroxine (SYNTHROID, LEVOTHROID) 100 mcg tablet Take 1 tablet (100 mcg total) by mouth 1 (one) time each day before breakfast. on an empty stomach 04/14/2024 Active Trelegy Ellipta 100-62.5-25 mcg inhaler Inhale 1 puff (100 mcg total) by mouth 1 (one) time each day. 04/14/2024 Active losartan (COZAAR) 100 mg tablet Take 1 tablet (100 mg total) by mouth 1 (one) time each day. 03/16/2024 Active oxyCODONE-aceta minophen (PERCOCET) 5-325 mg per tablet 04/24/2024 Active FLUoxetine (PROzac) 20 mg capsule Take 1 capsule (20 mg total) by mouth 1 (one) time each day. 03/16/2024 Active chlorthalidone (HYGROTON) 25 mg tablet TAKE 1 TABLET BY MOUTH EVERY DAY IN THE MORNING WITH FOOD 04/28/2024 Active atorvastatin (LIPITOR) 10 mg tablet Take 1 tablet (10 mg total) by mouth 1 (one) time each day. 03/16/2024 Active TURMERIC ORAL Take by mouth. Active coenzyme Q-10 (Co Q-10) 100 mg capsule Take 1 capsule (100 mg total) by mouth 1 (one) time each day. Active biotin 10 mg tablet Take by mouth. Active multivitamin tablet Take 1 tablet by mouth 1 (one) time each day. Active albuterol (PROVENTIL,VENT CORDELIA) 2 mg/5 mL syrup Take by mouth 3 (three) times a day. Active cholecalciferol (VITAMIN D-3) 50 mcg (2,000 unit) tablet Take 1 tablet (2,000 Units total) by mouth 1 (one) time each day. Active colestipoL (COLESTID) 1 gram tabletIndicatio ns:Chronic diarrhea Take 1 tablet (1 g total) by mouth 2 (two) times a day. 180 each 10/05/2024 Active esomeprazole (NexIUM) [address] capsule Take 1 capsule (40 mg total) by mouth 2 (two) times a day before meals. Do not open capsule. 180 each 10/18/2024 01/17/20 25 Active colesevelam (WelChoL) 625 mg tabletIndicatio ns:Bile reflux gastritis Take 3 tablets (1,875 mg total) by mouth 2 (two) times a day with meals. Take with meal(s) and a liquid. 180 each 12/31/2024 01/31/20 25 Active dicyclomine (BENTYL) 10 mg capsuleIndicati ons:Chronic diarrhea Take 1 capsule (10 mg total) by mouth 3 (three) times a day. 90 each 12/31/2024 01/31/20 25 Active sucralfate (CARAFATE) 1 gram tabletIndicatio ns:Bile-induced gastritis Take 1 tablet (1 g total) by mouth 4 (four) times a day (before meals and nightly). 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 Encounters Date Type Department Care Team Description 12/31/2024 Telephone Gastroenterology - [place] [facility] 175 [facility] [address] [place] [address] Kimmie Arce NP 12/28/2024 10:30 AM EDT Office Visit Thoracic Surgery [facility] [address] [phone] aTmar Werner MD Paraesophageal hiatal hernia (Primary Dx); Esophageal dysmotility 12/11/2024 9:46 AM EDT - 12/11/2024 11:59 PM EDT Hospital Encounter [facility] Xray [address] [place] [address] Paraesophageal hiatal hernia Discharge Disposition: Home or Self Care 11/10/2024 10:30 AM EDT Office Visit Thoracic Surgery [facility] [address] [phone] Tamar Werner MD Paraesophageal hiatal hernia (Primary Dx) 10/31/2024 8:24 AM EDT - 10/31/2024 11:59 PM EDT Hospital Encounter [facility] Nuclear Medicine [address] [place] [address] Paraesophageal hiatal hernia Discharge Disposition: Home or Self Care 10/19/2024 1:30 PM EDT Consult Thoracic Surgery - [place] [address] [phone] Tamar Werner MD Paraesophageal hiatal hernia (Primary Dx); Hiatal hernia 10/17/2024 Telephone Gastroenterology [facility] 175 [facility] 175 [facility] [address] [place] [address] Kimmie Arce NP from Last 3 Months Surgical History Surgery Date Site/Laterality Comments ECTOPIC SURGERY N/A GALLBLADDER SURGERY N/A ANKLE FRACTURE SURGERY Bilateral TUBAL LIGATION N/A BACK SURGERY N/A lower back Medical History Medical History Date Comments COPD (chronic obstructive pulmonary disease) (CM S/HCC V24, CMS/HCC V28) Hypertension Hyperlipidemia Thyroid activity decreased Social History Tobacco Use Types Packs/Day Years Used Date Smoking Tobacco: Former Cigarettes Smokeless Tobacco: Never Tobacco Cessation:Counseling Given: Not Answered Alcohol Use Standard Drinks/Week Comments Yes 1 (1 standard drink = 0.6 oz pur e alcohol) Interpersonal Safety Answer Date Record ed Physical Abuse 09/26/2024 Verbal Abuse 09/26/2024 Comments No Sex and Gender Information Value Date Recorded Sex Assigned at Female 03/31/2024 1:50 PM EST Legal Sex Female 3:02 AM EST Gender Identity Female 03/31/2024 1:50 PM EST Sexual Orientation Straight 03/31/2024 1: 50 PM EST Obstetrics History Last Filed Vital Signs Vital Sign Reading Time Taken Comments Blood Pressure 147/74 12/28/2024 10:33 AM EDT Pulse 60 12/28/2024 10:33 AM EDT Temperature 36.1 C (97 F) 12/28/2024 10:33 AM EDT Respiratory Rate 18 12/28/2024 10:33 AM EDT Oxygen Saturation 94% 12/28/2024 10:33 AM EDT Inhaled Oxygen Concentration - - Weight 93.4 kg (206 lb) 12/28/2024 10:33 AM EDT Height 157.5 cm (5' 2 ) 12/28/2024 10:33 AM EDT Body Mass Index 37.68 12/28/2024 10:33 AM EDT Plan of Treatment Health Maintenance Due Date Last Done Comments Breast Cancer Screening 1955 DTaP,Tdap,and Td Vaccines (1 - Tdap) 1973 Zoster Vaccines (2 of 2) 06/24/2018 04/29/2018 COVID-19 Vaccine (1 - season) 2024 Hepatitis C Screening 03/27/2024 Medicare Annual Wellness Visit 03/27/2024 Osteoporosis Screening (Bone Density Screening) 03/27/2024 Social Influencers of Health Screening 03/27/2024 Depression Screening 05/24/2024 Influenza Vaccine (#1) 2025 , 03/12/2023, 01/09/2022, Additional history exists Hypertension/CHF/CAD Annual BMP Blood Test 09/22/2025 09/22/2024, 08/30/2024, 05/15/2024 Falls Risk Assessment 09/26/2025 09/26/2024 Cholesterol Screening (Lipid Panel) 08/30/2029 08/30/2024, 08/30/2024 Colorectal Cancer Screening: Colonoscopy 09/26/2034 09/26/2024 Pneumococcal Vaccine: 50+ Years Completed 03/23/2024, 10/24/2016 RSV Immunization Adult Patients Completed 03/29/2024 HIB Vaccines Aged Out No longer eligi ble based on patient's age to complete this topic HPV Vaccines Aged Out No longer eligi ble based on patient's age to complete this topic Hepatitis A Vaccines Aged Out No long er eligible based on patient's age to complete this topic Hepatitis B Vaccines Aged Out No long er eligible based on patient's age to complete this topic IPV Vaccines Aged Out No longer eligi ble based on patient's age to complete this topic MMR Vaccines Aged Out No longer eligi ble based on patient's age to complete this topic Meningococcal ACWY Vaccine Aged Out N o longer eligible based on patient's age to complete this topic Meningococcal B Vaccine Aged Out No l onger eligible based on patient's age to complete this topic RSV Immunization Patients Under 20 months Aged Out No longer eligible based on patient's age to complete this topic Varicella Vaccines Aged Out No longer eligible based on patient's age to complete this topic Medical Devices Implanted Type Area [employer] Cashier Device Identifier Shelf Expiration Date Model / Serial / Lot Pins Bilateral: Ankle Procedures Procedure Name Priority Date/Time Associated Diagnosis Comments XR ESOPHAGRAM Routine 12/11/2024 10:13 AM EDT Paraesophageal hiatal hernia NM GASTRIC EMPTYING STUDY Routine 10/31/2024 1:51 PM EDT Paraesophageal hiatal hernia COLONOSCOPY Routine 09/26/2024 11:08 AM EDT Chronic diarrhea BASIC METABOLIC PANEL Routine 09/22/2024 1:48 PM EDT Diarrhea, unspecified type LIPID PANEL WITH REFLEX TO DIRECT LDL Routine 08/30/2024 2:20 PM EDT Acute back pain with sciatica, right Mixed hyperlipidemia Impaired fasting glucose from Last 3 Months or Most Recently Relevant to Health Maintenance Results * XR Esophagram (12/11/2024 10:13 AM EDT) Anatomical Region Laterality Modality Head and Neck Radiographic Rosina ging 12/11/2024 10:3 5 AM EDT Impressions 12/11/2024 11:15 AM EDT Moderate to severe esophageal dysmotility, otherwise unremarkable double contrast esophagram exam. -------- FINAL REPORT -------- Dictated By: Huong Donnelly Dictated Date: 12/11/2024 10:35 ET Assigned Physician: Sarthak Linares Reviewed and Electronically Signed By: Sarthak Linares Signed Date: 12/11/2024 11:15 ET Workstation ID: [id number] Transcribed By: Self Edit Transcribed Date: 12/11/2024 11:06 ET Resident/PA/CRITICAL CARE TRANSPORT NURSE: Huong Donnelly Narrative 12/11/2024 11:15 AM EDT FINDINGS: Double contrast esophagram performed. COMPARISON: No prior esophagram imaging; CT abdomen and pelvis with contrast July 05, 2024 reviewed HISTORY: Patient is a 69-year-old female with history of GERD. Hiatal hernia. [employer] radiographs: 1 view chest radiograph demonstrates cardiac and mediastinal contours within normal limits. There is a rounded, radiopaque opacity just right of midline overlying the right middle lobe which correlates with a prominent pericardial fat pad seen on CT abdomen pelvis from June 2024. Lungs are otherwise clear bilaterally. Costophrenic angles are sharp. The aortic knob is calcified. There are moderate bony degenerative changes noted of the thoracolumbar spine. Cholecystectomy clips are present. Effervescent crystals were administered orally. Thick and thin barium were administered orally under fluoroscopic control. Pharyngoesophagram: Rapid sequence imaging of the hypopharynx during swallowing demonstrates prompt initiation of swallowing. There is normal soft palate elevation and normal epiglottic motion. There is no laryngeal penetration or tangela aspiration. There is no residual in the vallecula nor in the piriform sinuses. Thoracic esophagus: There is moderate to severe esophageal dysmotility as demonstrated multiple tertiary contractions visualized and at times stagnant flow of contrast down the esophagus, particularly with the patient in the recumbent position. Normal distensibility and mucosal pattern without evidence of ulceration, stricture or mass formation. Hiatal hernia: None Reflux: Unable to elicit 13mm Barium pill: Swallowed without difficulty. Prompt passage of pill from the esophagus into the stomach. DAP: 298.1 uGym^2 Procedure Note Sarthak Linares MD - 12/11/2024 FINDINGS: Double contrast esophagram performed. COMPARISON: No prior esophagram imaging; CT abdomen and pelvis withcontrast July 05, 2024 reviewed HISTORY: Patient is a 69-year-old female with history of GERD. Hiatalhernia. [employer] radiographs: 1 view chest radiograph demonstrates cardiac andmediastinal contours within normal limits. There is a rounded, radiopaqueopacity just right of midline overlying the right middle lobe whichcorrelates with a prominent pericardial fat pad seen on CT abdomen pelvisfrom June 2024. Lungs are otherwise clear bilaterally. Costophrenicangles are sharp. The aortic knob is calcified. There are moderate bonydegenerative changes noted of the thoracolumbar spine. Cholecystectomyclips are present. Effervescent crystals were administered orally. Thick and thin barium wereadministered orally under fluoroscopic control. Pharyngoesophagram: Rapid sequence imaging of the hypopharynx duringswallowing demonstrates prompt initiation of swallowing. There is normalsoft palate elevation and normal epiglottic motion. There is no laryngealpenetration or tangela aspiration. There is no residual in the vallecula norin the piriform sinuses. Thoracic esophagus: There is moderate to severe esophageal dysmotility asdemonstrated multiple tertiary contractions visualized and at timesstagnant flow of contrast down the esophagus, particularly with thepatient in the recumbent position. Normal distensibility and mucosalpattern without evidence of ulceration, stricture or mass formation. Hiatal hernia: None Reflux: Unable to elicit 13mm Barium pill: Swallowed without difficulty. Prompt passage of pillfrom the esophagus into the stomach. DAP: 298.1 uGym^2 IMPRESSION: Moderate to severe esophageal dysmotility, otherwise unremarkable doublecontrast esophagram exam. -------- FINAL REPORT -------- Dictated By: Huong Donnelly Dictated Date: 12/11/2024 10:35 ET Assigned Physician: Sarthak Linares Reviewed and Electronically Signed By: Sarthak Linares Signed Date: 12/11/2024 11:15 ET Workstation ID: [id number] Transcribed By: Self Edit Transcribed Date: 12/11/2024 11:06 ET Resident/PA/CRITICAL CARE TRANSPORT NURSE: Huong Donnelly Tamar Werner MD IMG FLUOROSCOPY PROCEDURES Final Result * NM Gastric Emptying Study (10/31/2024 1:51 PM EDT) Anatomical Region Laterality Modality Body Nuclear Medicine 11/01/2024 11:5 7 AM EDT Impressions 11/01/2024 11:58 AM EDT Normal solid material gastric emptying. Telerad TIN ([id number]) -------- FINAL REPORT -------- Dictated By: Maryan Woodruff Dictated Date: 11/01/2024 11:57 ET Assigned Physician: Maryan Woodruff Reviewed and Electronically Signed By: Maryan Woodruff Signed Date: 11/01/2024 11:58 ET Workstation ID: [id number] Transcribed By: Self Edit Transcribed Date: 11/01/2024 11:57 ET Narrative 11/01/2024 11:58 AM EDT HISTORY: Paraesophageal hernia. Bile gastritis. Question disordered gastric emptying. FINDINGS: Radionucleotide gastric emptying study performed following ingestion of 1.2 mCi of Tc99m sulfur colloid mixed with eggs for solid food evaluation. Solid food evaluation time to half peak clearance is 152 minutes with normal being less than 90 minutes. Patients 4 hour retention amount was calculated at 5%. Reference normal solid residual activity: less than 90% at 1 hour less than 60% at 2 hours less than 30% at 3 hours less than 10% at 4 hours Procedure Note Maryan Woodruff MD - 11/01/2024 HISTORY: Paraesophageal hernia. Bile gastritis. Question disorderedgastric emptying. FINDINGS: Radionucleotide gastric emptying study performed followingingestion of 1.2 mCi of Tc99m sulfur colloid mixed with eggs for solidfood evaluation. Solid food evaluation time to half peak clearance is 152 minutes withnormal being less than 90 minutes. Patients 4 hour retention amount was calculated at 5%. Reference normal solid residual activity: less than 90% at 1 hour less than 60% at 2 hours less than 30% at 3 hours less than 10% at 4 hours IMPRESSION: Normal solid material gastric emptying. Telerad TIN ([id number]) -------- FINAL REPORT -------- Dictated By: Maryan Woodruff Dictated Date: 11/01/2024 11:57 ET Assigned Physician: Maryan Woodruff Reviewed and Electronically Signed By: Maryan Woodruff Signed Date: 11/01/2024 11:58 ET Workstation ID: [id number] Transcribed By: Self Edit Transcribed Date: 11/01/2024 11:57 ET Tamar Werner MD IM NM PROCEDURES Final Result * COLONOSCOPY Anesthesia - MAC; [facility] ENDOSCOPY (09/26/2024 11:08 AM EDT) Anatomical Region Laterality Modality Endoscopy 09/26/2024 10:4 4 AM EDT Impressions 09/26/2024 11:10 AM EDT - The examined portion of the ileum was normal. - Normal mucosa in the entire examined colon. Biopsied. - Diverticulosis in the sigmoid colon and in the descending colon. - Internal hemorrhoids. Recommendation: - Await pathology results. - No repeat colonoscopy due to current age (66 years or older). Narrative 09/26/2024 11:10 AM EDT [facility] GI Patient Name: Edna Navarrete Procedure Date: 09/26/2024 10:44 AM Date of : 1955 Age: 69 Gender: Female Note Status: Finalized Attending MD: Isaias Johnston MD, Procedure Date No Time: 09/26/2024 Procedure: Colonoscopy Indications: Chronic diarrhea Providers: Isaias Johnston MD Referring MD: Isaias Johnston MD Medicines: Monitored Anesthesia Care Complications: No immediate complications. Estimated blood loss: Minimal. Estimated Blood Loss: Estimated blood loss was minimal. Procedure: Pre-Anesthesia Assessment: - Prior to the procedure, a History and Physical was performed, and patient medications and allergies were reviewed. The patient is competent. The risks and benefits of the procedure and the sedation options and risks were discussed with the patient. All questions were answered and informed consent was obtained. Patient identification and proposed procedure were verified by the physician, the nurse, the representative and the diet technician registered in the pre-procedure area in the endoscopy suite. Mental Status Examination: alert and oriented. Airway Examination: normal oropharyngeal airway and neck mobility. Respiratory Examination: clear to auscultation. CV Examination: normal. Prophylactic Antibiotics: The patient does not require prophylactic antibiotics. Prior Anticoagulants: The patient has taken no anticoagulant or antiplatelet agents. ASA Grade Assessment: III - A patient with severe systemic disease. After reviewing the risks and benefits, the patient was deemed in satisfactory condition to undergo the procedure. The anesthesia plan was to use monitored anesthesia care (MAC). Immediately prior to administration of medications, the patient was re-assessed for adequacy to receive sedatives. The heart rate, respiratory rate, oxygen saturations, blood pressure, adequacy of pulmonary ventilation, and response to care were monitored throughout the procedure. The physical status of the patient was re-assessed after the procedure. After I obtained informed consent, the scope was passed under direct vision. Throughout the procedure, the patient's blood pressure, pulse, and oxygen saturations were monitored continuously.The Olympus Colonoscope was introduced through the anus and advanced to the terminal ileum. The colonoscopy was performed without difficulty. The patient tolerated the procedure well. The quality of the bowel preparation was good. Findings: The perianal and digital rectal examinations were normal. The terminal ileum appeared normal. Normal mucosa was found in the entire colon. Biopsies for histology were taken with a cold forceps from the ascending colon for evaluation of microscopic colitis. Estimated blood loss was minimal. Many small and large-mouthed diverticula were found in the sigmoid colon and descending colon. Internal hemorrhoids were found during retroflexion. The hemorrhoids were Grade I (internal hemorrhoids that do not prolapse). Procedure Code(s): --- Professional --- 72931, Colonoscopy, flexible; with biopsy, single or multiple Diagnosis Code(s): --- Professional --- K52.9, Noninfective gastroenteritis and colitis, unspecified CPT copyright 2020 [employer]. All rights reserved. The codes documented in this report are preliminary and upon certified medical coder review may be revised to meet current compliance requirements. Isaias Johnston MD 09/26/2024 11:10:00 AM This report has been signed electronically.Isaias Johnston MD Number of Addenda: 0 Note Initiated On: 09/26/2024 10:44 AM Scope Withdrawal Time: 0 hours 7 minutes 18 seconds Scope In: 10:51:04 AM Scope Out: 11:00:37 AM Endoscopy Department at [facility] - [address] [place] [phone] Procedure Note Isaias Johnston MD - 09/26/2024 [facility] GI Patient Name: Edna Navarrete Procedure Date: 09/26/2024 10:44 AM Date of : 1955 Age: 69 Gender: Female Note Status: Finalized Attending MD: Isaias Johnston MD, Procedure Date No Time: 09/26/2024 Procedure: Colonoscopy Indications: Chronic diarrhea Providers: Isaias Johnston MD Referring MD: Isaias Johnston MD Medicines: Monitored Anesthesia Care Complications: No immediate complications. Estimated blood loss: Minimal. Estimated Blood Loss: Estimated blood loss was minimal. Procedure: Pre-Anesthesia Assessment: - Prior to the procedure, a History and Physicalwas performed, and patient medications and allergieswere reviewed. The patient is competent. The risks and benefits of the procedure and the sedation optionsand risks were discussed with the patient. Allquestions were answered and informed consent was obtained. Patient identification and proposed procedure were verified by the physician, the nurse, theanesthetist and the diet technician registered in the pre-procedure area in the endoscopy suite. Mental Status Examination: alertand oriented. Airway Examination: normal oropharyngeal airway and neck mobility. Respiratory Examination: clear to auscultation. CV Examination: normal. Prophylactic Antibiotics: The patient does notrequire prophylactic antibiotics. Prior Anticoagulants: The patient has taken no anticoagulant or antiplatelet agents. ASA Grade Assessment: III - A patient with severe systemic disease. After reviewing the risksand benefits, the patient was deemed in satisfactory condition to undergo the procedure. The anesthesia plan was to use monitored anesthesia care (MAC). Immediately prior to administration of medications, the patient was re-assessed for adequacy to receive sedatives. The heart rate, respiratory rate, oxygen saturations, blood pressure, adequacy of pulmonary ventilation, and response to care were monitored throughout the procedure. The physical status ofthe patient was re-assessed after the procedure. After I obtained informed consent, the scope was passed under direct vision. Throughout theprocedure, the patient's blood pressure, pulse, and oxygen saturations were monitored continuously.The Olympus Colonoscope was introduced through the anus and advanced to the terminal ileum. The colonoscopy was performed without difficulty. The patient tolerated the procedure well. The quality of the bowel preparation was good. Findings: The perianal and digital rectal examinations were normal. The terminal ileum appeared normal. Normal mucosa was found in the entire colon.Biopsies for histology were taken with a cold forceps fromthe ascending colon for evaluation of microscopiccolitis. Estimated blood loss was minimal. Many small and large-mouthed diverticula were foundin the sigmoid colon and descending colon. Internal hemorrhoids were found duringretroflexion. The hemorrhoids were Grade I (internal hemorrhoids that do not prolapse). Procedure Code(s): --- Professional --- 21209, Colonoscopy, flexible; with biopsy, singleor multiple Diagnosis Code(s): --- Professional --- K52.9, Noninfective gastroenteritis and colitis, unspecified CPT copyright 2020 [employer]. All rights reserved. The codes documented in this report are preliminary and upon certified medical coder reviewmay be revised to meet current compliance requirements. Isaias Johnston MD 09/26/2024 11:10:00 AM This report has been signed electronically.Isaias Johnston MD Number of Addenda: 0 Note Initiated On: 09/26/2024 10:44 AM Scope Withdrawal Time: 0 hours 7 minutes 18 seconds Scope In: 10:51:04 AM Scope Out: 11:00:37 AM Endoscopy Department at [facility] - [address] [place] [id number] IMPRESSION: - The examined portion of the ileum was normal. - Normal mucosa in the entire examined colon.Biopsied. - Diverticulosis in the sigmoid colon and in the descending colon. - Internal hemorrhoids. Recommendation: - Await pathology results. - No repeat colonoscopy due to current age (66years or older). us Isaias Johnston MD GI~PROCEDURE ORDERABLES Fin al Result * (ABNORMAL) Basic metabolic panel (09/22/2024 1:48 PM EDT) Sodium 136 133 - 145 mmol/L LAB CHEMISTRY METHOD 09/22/2024 6:17 PM [facility] Potassium 3.1(L) 3.5 - 5.5 mmol/L LAB CHEMISTRY METHOD 09/22/2024 6:17 PM [facility] Chloride 98 96 - 110 mmol/L LAB CHEMISTRY METHOD 09/22/2024 6:17 PM [facility] CO2 31 21 - 32 mmol/L LAB CHEMISTRY METHOD 09/22/2024 6:17 PM [facility] Anion Gap 7 3 - 11 LAB CHEMISTRY METHOD 09/22/2024 6:17 PM [facility] Glucose 78 70 - 100 mg/dL LAB CHEMISTRY METHOD 09/22/2024 6:17 PM [facility] BUN 30(H) 5 - 25 mg/dL LAB CHEMISTRY METHOD 09/22/2024 6:17 PM [facility] Creatinine 0.87 0.50 - 1.10 mg/dL LAB CHEMISTRY METHOD 09/22/2024 6:17 PM [facility] eGFR 72 >=60 mL/min/1. 73m2 LAB CHEMISTRY METHOD 09/22/2024 6:17 PM [facility] Comment:Calculation based on the Chronic Kidney Disease Epidemiology Collaboration (CKD-EPI) equation refit without adjustment for race. BUN/Creatinine Ratio 34.5 LAB CHEMISTRY METHOD 09/22/2024 6:17 PM [facility] Calcium 9.5 8.5 - 10.5 mg/dL LAB CHEMISTRY METHOD 09/22/2024 6:17 PM [facility] Blood Venous blood specimen / Unknown Venipuncture / Unknown 09/22/2024 1:48 PM EDT 09/22/2024 1:48 PM EDT us Matthew Nolen DO LAB BLOOD ORDERABLES Final Resul t [facility] [address] [place] [address], [place] [phone] * (ABNORMAL) Lipid panel with reflex to direct LDL (08/30/2024 2:20 PM EDT) Cholesterol 233(H) 0 - 200 mg/dL LAB CHEMISTRY METHOD 08/30/2024 6:55 PM EDT [facility] Triglycerides 602(H) 0 - 150 mg/dL LAB CHEMISTRY METHOD 08/30/2024 6:55 PM EDT [facility] HDL 47 >=40 mg/dL LAB CHEMISTRY METHOD 08/30/2024 6:55 PM EDT [facility] LDL Calculated LAB CHEMISTRY METHOD 08/30/2024 6:55 PM EDT [facility] Comment: Unable to calculate when triglycerides >400 mg/dL. Triglyceride value is >= 500. Calculated LDL is not meaningful. Direct LDL has been added. VLDL Cholesterol Callum LAB CHEMISTRY METHOD 08/30/2024 6:55 PM EDT [facility] Comment:Unable to calculate when triglycerides >400 mg/dL. Non HDL Chol. (LDL+VLDL) LAB CHEMISTRY METHOD 08/30/2024 6:55 PM EDT [facility] Comment:Unable to calculate when triglycerides >400 mg/dL. Chol/HDL Ratio 5.0(H) 0.0 - 4.4 LAB CHEMISTRY METHOD 08/30/2024 6:55 PM EDT [facility] Blood Venous blood specimen / Unknown Venipuncture / Unknown 08/30/2024 2:20 PM EDT 08/30/2024 2:22 PM EDT us Chadd Caba MD LAB BLOOD ORDERABLES Final Res ult [facility] [address] [place] [address], [place] [phone] from Last 3 Months or Most Recently Relevant to Health Maintenance Additional Health Concerns Infection Onset Date Last Indicated Enteropathogenic E. 

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
== END 2025-01-15 13:43 | disposition home or self-care (01) ==
LOC: HO.HPS 13:20
PROVIDERS: PCP Internal Medicine; Visit Provider Internal Medicine Pulmonary Disease
DX: J44.9 Chronic obstructive pulmonary disease, unspecified (principal)
CPT/HCPCS: 99213

== ENCOUNTER → 2025-01-15 13:19 | Outpatient (BNVA) | payer MEDICARE, MEDICAID, SELFPAY | PROVIDERS: PCP Internal Medicine; Visit Provider Internal Medicine Pulmonary Disease | DX: J44.9 Chronic obstructive pulmonary disease, unspecified (principal); Z87.891 Personal history of nicotine dependence | CPT/HCPCS: 99212 ==